=== PATIENT | male | born 1980 | race African-American/Black ===

== ENCOUNTER 2016-10-18 17:07 | Emergency (ER) | payer SELFPAY ==
[~2016-10-18] VITALS: Ht 170.2 cm; Wt 77.1 kg
[2016-10-18 17:22] VITALS: BP 103/47
[2016-10-18 17:28] VITALS: BP 103/47
--- NOTE | 2016-10-18 17:32 | Emergency Room Report ---
History of Present Illness General Chief Complaint: Substance Abuse Source: Patient Present Illness HPI The patient is a 36-year-old male in custody presenting for medical clearance. The patient states that he last took methamphetamine 6 days prior but feels like he is still under the influence of it. The patient states that he has been having extreme thirst which is better after drinking water. The patient denies any medical conditions. The patient denies any other symptoms including nausea, vomiting, fever, chills, headache, dizziness, chest pain, shortness of breath, abdominal pain, numbness or tingling Allergies: Coded Allergies: NO KNOWN ALLERGIES (Verified Allergy, Unknown, 10/18/16) Patient History Past Medical History: see triage record Pertinent Family History: none Social History: Reports: drug use Reviewed Nursing Documentation: PMH: Agreed, PSxH: Agreed Nursing Documentation-PMH Past Medical History: No Stated History Review of Systems All Other Systems: negative except mentioned in HPI Physical Exam Vital Signs Date Time Temp Pulse Resp B/P Pulse Ox O2 Delivery O2 Flow Rate FiO2 10/18/16 17:13 98.2 100 16 103/47 100 Room Air Sp02 EP Interpretation: reviewed, normal General Appearance: no apparent distress, alert, GCS 15, non-toxic Head: normocephalic, atraumatic Eyes: bilateral eye PERRL, bilateral eye normal inspection ENT: hearing grossly normal, normal pharynx, no angioedema, normal voice Neck: full range of motion, supple/symm/no masses Respiratory: chest non-tender, lungs clear, normal breath sounds, no accessory muscle use, no wheezing, speaking full sentences Cardiovascular #1: regular rate, rhythm, no edema Gastrointestinal: normal bowel sounds, non tender, soft, non-distended, no guarding, no rebound Genitourinary: normal inspection, no CVA tenderness Musculoskeletal: back normal, gait/station normal, normal range of motion, non- tender Neurologic: alert, oriented x3, responsive, motor strength/tone normal, sensory intact, speech normal Psychiatric: judgement/insight normal, memory normal, mood/affect normal, no suicidal/homicidal ideation Skin: normal color, no rash, warm/dry, well hydrated Lymphatic: no adenopathy Medical Decision Making PA Attestation Dr. Owens is my supervising physician. Patient management was discussed with my supervising physician Diagnostic Impression: Primary Impression: Substance abuse ER Course The patient is a 36-year-old male in custody presenting for medical clearance. Differential diagnoses considered but not limited to suicidal ideation, homicidal ideation, depression, drug abuse PE: No apparent distress. A&Ox3 PERRL. EOMI. RRR. No MRG Lungs CTA bilat Abdomen: Normal appearance. Non distended. No ecchymosis. Normal BS. Non TTP. No McBurney point tenderness. No guarding. Skin is warm and dry, no rashes. The patient will be discharged and is medically cleared. Last Vital Signs Date Time Temp Pulse Resp B/P Pulse Ox O2 Delivery O2 Flow Rate FiO2 10/18/16 17:22 98.2 100 16 103/47 100 Room Air Status: improved Disposition: D/C TO LAW ENFORCEMENT IN CUST Condition: Improved Departure Forms: Assisted Clearance Patient Instructions: Stimulant Use Disorder-Methamphetamines Additional Instructions: I discussed my findings with the patient. All questions and concerns have been answered. Treatment and medication compliance have been addressed. Patient is medically cleared for booking. MARCOS HUMPHREYS Oct 18, 2016 17:32
== END 2016-10-18 17:28 ==
LOC: EMR 17:23
DX: F19.10 Other psychoactive substance abuse, uncomplicated (principal)
CPT/HCPCS: 99283